=== PATIENT | female | born 1990 | race Caucasian/White ===

== ENCOUNTER 2017-12-21 16:03 | Emergency (ER) | payer OTHER ==
--- NOTE | 2017-12-21 16:39 | ED Physician Documentation ---
General Adult - HISTORIAN Historian: patient - HPI Stated Complaint: nausea, dizziness, in Chief Complaint: General Adult Onset: hours Timing: still present Severity: moderate Further Comments: yes (Pt is a 27 yo female at 9 and 6/7 weeks by LMP. Pt is with 3 miscarriages. Pt has been feeling dizzy and states that she is anemic and has a uterine hematoma seen on u/s. She is followed by [facility]. Crawford. She states also that there is a plan for her to wear a heart monitor next week. Pt has presented with similar sx at other facilities recently. Pt has hx gestational diabetes.) - ROS CONST: other (dizziness) EYES/ENT: none CVS/RESP: none GI/: nausea MS/SKIN/LYMPH: none NEURO/PSYCH: dizziness - PAST HX Past History: other (gestational diabetes) Allergies/Adverse Reactions: Allergies Allergy/AdvReac Type Severity Reaction Status Date / Time latex Allergy Verified 12/21/17 16:18 oxycodone [From Percocet] Allergy Itchy Skin Verified 12/21/17 16:18 Home Medications: Ambulatory Orders Medication Instructions Recorded Aspirin [Children's Aspirin] 81 mg PO DAILY 12/21/17 Vit Calc,Iron,Folic 1 each PO DAILY 12/21/17 [ Vitamins] - SOCIAL HX Smoking History: cigarettes - FAMILY HX Family History: No - REVIEWED ASSESSMENTS Nursing Assessment Reviewed: Yes Vitals Reviewed: Yes Progress - Progress Progress: NS 1 L IVF Potassium Chloride 20 mEq po x 1 f/u [employer] - EKG/XRAY/CT EKG: rhythm (sinus bradycardia, HR=58.) General Adult Physical Exam - PHYSICAL EXAM GENERAL APPEARANCE: mild distress EENT: pharynx normal NECK: normal inspection, supple RESPIRATORY: no resp distress, chest non-tender, breath sounds normal CVS: reg rate & rhythm, heart sounds normal ABDOMEN: soft, no organomegaly, normal bowel sounds BACK: normal inspection, no CVA tenderness SKIN: warm/dry, normal color EXTREMITIES: non-tender, normal range of motion, no evidence of injury, no edema NEURO: oriented X3, motor nml, sensation nml Discharge Clincal Impression: nausea, dizziness, in , mild hypokalemia Referrals: Primary Doctor,No [Primary Care Provider] - Condition: Stable Disposition: 01 HOME, SELF-CARE Decision to Admit: NO Decision Time: 18:54
[2017-12-21] MEDS ORDERED: 0.9 % SODIUM CHLORIDE 1,000 ML IV ONE ×2 (16:47→17:18)
[2017-12-21 17:32] LABS: BASOPHILS % 0.2 (0.0-1.5); EOSINOPHILS % 0.3 % (0.0-6.8); MEAN CORPUSCULAR HEMOGLOBIN 32.4 pg (28.0-34.0); MEAN CORPUSCULAR VOLUME 94.4 fl (80.0-100.0); MONOCYTES % 4.3 % (0.0-11.0); NEUTROPHILS # 5.8 # k/uL (1.4-7.7)
[2017-12-21] MEDS ORDERED: POTASSIUM CHLORIDE 20 MEQ TABLET.ER PO ONE (18:40)
[2017-12-21 19:21] VITALS: BP 108/52
[2017-12-22 06:06] LABS: APPEARANCE,URINE CLOUDY (CLEAR); COLOR,URINE YELLOW (YELLOW); OCCULT BLOOD,URINE NEGATIVE (NEGATIVE)
[2017-12-22 06:07] LABS: UROBILINOGEN URINE 0.2 Eu (0.2-1.0)
== END 2017-12-21 19:10 | disposition home or self-care (01) ==
LOC: ED 16:03
DX: E87.6 Hypokalemia (principal); O21.9 Vomiting of pregnancy, unspecified; R11.0 Nausea
CPT/HCPCS: 80053; 81002; 82565; 85025; 87880; 93005; A9270; J7030; 96365; 96366; S1016

== ENCOUNTER 2018-01-03 22:25 | Emergency (ER) | payer OTHER ==
--- NOTE | 2018-01-03 22:45 | ED Physician Documentation ---
Sore Throat/Dental Pain - HISTORIAN Historian: patient - HPI Stated Complaint: sore throat Chief Complaint: Sore Throat Onset: days ago (3) Context: Possible Infection (son has strep ) Associated Symptoms: fever, chills, sore throat, mild, other (nausea () dysuria ) Worsened By: nothing Further Comments: yes (She is approx 12 weeks . She has nasuea with but this continues. She has had what she feels is fever and chills with sweats. She has dysuria x 2 days. No blood in her urine. She denies any vomiting or diarrhea. She has been able to intake food and water normally.) - ROS CONST: no problems MS/SKIN/LYMPH: denies: rash NEURO/PSYCH: none - PAST HX Past History: none Other History: none Immunizations: UTD Allergies/Adverse Reactions: Allergies Allergy/AdvReac Type Severity Reaction Status Date / Time latex Allergy Verified 01/03/18 23:02 oxycodone [From Percocet] Allergy Itchy Skin Verified 01/03/18 23:02 Home Medications: Ambulatory Orders Medication Instructions Recorded Vit Calc,Iron,Folic 1 each PO DAILY 12/21/17 [ Vitamins] - SOCIAL HX Smoking History: cigarettes Alcohol Use: none Drug Use: none - FAMILY HX Family History: No - VITAL SIGNS Vital Signs: Vital Signs Temp Pulse Resp BP Pulse Ox 97.8 F 75 16 94/68 99 01/03/18 22:30 01/03/18 22:30 01/03/18 22:30 01/03/18 22:30 01/03/18 22:30 - REVIEWED ASSESSMENTS Nursing Assessment Reviewed: Yes Vitals Reviewed: Yes ED Results Lab/Radiology - Orders Orders: ED Orders Category Date Time Status Rapid Strep [GRP A STREP SCREEN] Stat Lab 01/03/18 Ordered UA W/MICRO IF INDICATED Routine Lab 01/03/18 22:53 Ordered URINE HCG Stat Lab 01/03/18 Ordered Nitrofurantoin Monohyd/M-Cryst [Macrobid] Med 01/03/18 23:00 Once 100 mg PO NOW ONE Sore throat Physical Exam - EXAM General Appearance: no acute distress, alert Head/Neck: head nml inspection. No: cervical lymphadenopathy Eyes: eyes nml inspection, PERRL Mouth/Throat: lips nml, gums nml, pharynx nml, no drooling, no air way problems, membranes nml, other (membranes moist ). No: pharyngeal erythema, dry membranes Ear/Nose: nml inspection. No: TM erythema, loss of TM landmarks Respiratory: no resp. distress, breath sounds nml CVS: reg. rate & rhythm, heart sounds nml Abdomen: soft, no distension, tenderness (bladder palpation ) Extremities: non-tender Skin: warm/dry Neuro/Psych: oriented x3, mood/affect nml Discharge Clincal Impression: UTI (urinary tract infection) Qualifiers: Urinary tract infection type: site unspecified Hematuria presence: without hematuria Qualified Code(s): N39.0 - Urinary tract infection, site not specified Referrals: Frank Medeiros MD [Primary Care Provider] - 2 Days Additional Instructions: 1. Increase fluid 2. take nausea med as prescribed by OBGYN 3. Macrobid 100 mg take 1 by mouth twice per day x 10 4. Follow up with PCP or OBGYN in 2-4 days 5. Return to ER for any concerns Condition: Stable Disposition: 01 HOME, SELF-CARE Decision to Admit: NO Date of Decison to Admit: 01/03/18 Decision Time: 23:10
[2018-01-03] MEDS ORDERED: NITROFURANTOIN 100 MG CAPSULE PO ONE (23:00)
[2018-01-04 00:03] VITALS: BP 96/67
[2018-01-04 07:10] LABS: APPEARANCE,URINE CLOUDY (CLEAR); COLOR,URINE YELLOW (YELLOW); OCCULT BLOOD,URINE TRACE-INTACT (NEGATIVE); PH URINE 6.5 (5.0 - 8.0); URINE HCG POSITIVE (NEGATIVE); UROBILINOGEN URINE 0.2 Eu (0.2-1.0)
== END 2018-01-03 23:15 | disposition home or self-care (01) ==
LOC: ED 22:25
DX: N39.0 Urinary tract infection, site not specified (principal)
CPT/HCPCS: 81002; 81025; 87086